=== PATIENT | female | born 1950 | race Caucasian/White ===

== ENCOUNTER 2023-05-05 20:21 | Emergency (ER) | payer MEDICARE, OTHER, SELFPAY ==
[2023-05-05 20:59] VITALS: BP 104/63; PULSE 114; RESP 16; TEMP 36.1; O2SAT 96
[2023-05-05 22:45] VITALS: BP 125/87; PULSE 110; RESP 14; TEMP 36.4; O2SAT 98
--- NOTE | 2023-05-05 23:18 | ED.WOUNDLAC ---
HPI - Wound/Laceration General Chief Complaint: Wound/Laceration <Nimo Jama PA-C - Last Filed: 05/06/23 02:44> Stated Complaint: gashed leg open, takes 1 daily aspirin <Nimo Jama PA-C - Last Filed: 05/06/23 02:44> Time Seen by Provider: 05/05/23 22:26 <Nimo Jama PA-C - Last Filed: 05/06/23 02:44> History of Present Illness HPI narrative: 73-year-old female reports for evaluation for a laceration to the left lower leg prior to arrival. Patient states she excellently cut her leg on the bottle of her purse. Bleeding is controlled. Her tetanus vaccine is up-to-date per patient. She does have a history of CHF and is currently taking Lasix with significant lower extremity edema which she states is unchanged from her baseline. She denies fever. <RIGOBERTO Scott Last Filed: 05/06/23 02:44> Related Data Allergies/Adverse Reactions: Allergies Allergy/AdvReac Type Severity Reaction Status Date / Time No Known Allergies Allergy Verified 05/05/23 20:57 <RIGOBERTO Scott Last Filed: 05/06/23 02:44> Review of Systems Review of Systems: CONSTITUTIONAL: Denies fever, chills EYES: Denies visual changes, redness, or discharge. ENT: Denies rhinorrhea, congestion, sore throat, or otalgia. CARDIOVASCULAR: Denies chest pain, palpitations, or edema. RESPIRATORY: Denies cough or dyspnea. GASTROINTESTINAL: Denies abdominal pain, nausea, vomiting, or diarrhea. GENITOURINARY: Denies dysuria or hematuria. SKIN: See HPI MUSCULOSKELETAL: Denies back pain, joint pain, or myalgia. NEUROLOGIC: Denies headache, numbness, dizziness, or weakness. PSYCHIATRIC: Denies anxiety or depression. <Nimo Jama PA-C - Last Filed: 05/06/23 02:44> Exam Narrative: GENERAL: Well-appearing, in no acute distress. HEAD: Normocephalic NECK: Supple. CHEST: No respiratory distress. Clear to auscultation, no adventitious breath sounds. HEART: Regular rate and rhythm. No murmur heard. Normal peripheral pulses. EXTREMITIES: Normal range of motion. No edema. SKIN: 6 cm superficial laceration to the anterior tib-fib, no deep structures or foreign bodies visualized. Bleeding controlled. NEURO: No focal deficits. Alert and oriented x3. PSYCH: Normal mood and affect. <Nimo Jama PA-C - Last Filed: 05/06/23 02:44> Course PRACTICE PROFESSIONAL/PA Physician Supervision I agree with midlevel documentation; I performed the medical decision making component of this evaluation. <Michela Srivastava MD - Last Filed: 05/06/23 22:42> Vital Signs Vital signs: Vital Signs Temperature 96.9 F L 05/05/23 20:59 Pulse Rate 114 H 05/05/23 20:59 Respiratory Rate 16 05/05/23 20:59 Blood Pressure 104/63 05/05/23 20:59 Pulse Oximetry 96 05/05/23 20:59 Oxygen Delivery Room Air 05/05/23 20:59 Temperature 97.6 F 05/05/23 22:45 Pulse Rate 100 05/06/23 00:56 Respiratory Rate 14 05/06/23 00:56 Blood Pressure 112/76 05/06/23 00:56 Pulse Oximetry 100 05/06/23 00:56 Oxygen Delivery Room Air 05/05/23 22:45 <Nimo Jama PA-C - Last Filed: 05/06/23 02:44> Vital Signs Temperature 96.9 F L 05/05/23 20:59 Pulse Rate 114 H 05/05/23 20:59 Respiratory Rate 16 05/05/23 20:59 Blood Pressure 104/63 05/05/23 20:59 Pulse Oximetry 96 05/05/23 20:59 Oxygen Delivery Room Air 05/05/23 20:59 Temperature 97.6 F 05/05/23 22:45 Pulse Rate 100 05/06/23 00:56 Respiratory Rate 14 05/06/23 00:56 Blood Pressure 112/76 05/06/23 00:56 Pulse Oximetry 100 05/06/23 00:56 Oxygen Delivery Room Air 05/05/23 22:45 <Michela Srivastava MD - Last Filed: 05/06/23 22:42> Procedures Laceration Laceration 1: Site: lower extremity <RIGOBERTO Scott Filed: 05/06/23 02:44> Side (If applicable): left <RIGOBERTO Scott Filed: 05/06/23 02:44> Description: linear <RIGOBERTO Scott L
[2023-05-06 00:29] VITALS: BP 98/80; PULSE 108; RESP 13; O2SAT 98
--- NOTE | 2023-05-06 00:29 | ECG_ITS ---
Measurements Intervals [place] Rate: 110 P: 266 WI: 142 QRS: -23 QRSD: 124 T: 171 QT: 348 QTc: 472 Interpretive Statements PROBABLE SINUS TACHYCARDIA LEFT VENTRICULAR HYPERTROPHY AND ST-T CHANGE SECONDARY TO HYPERTROPHY VERSUS ISCHEMIA POSSIBLE SEPTAL MYOCARDIAL INFARCTION , PROBABLY OLD [30 ms Q WAVE IN V1/V2] ABNORMAL ECG NO PREVIOUS ECG AVAILABLE FOR COMPARISON Electronically Signed On 05-06-2023 9:25:22 CDT by Abebe Giron M.D.
[2023-05-06 00:56] VITALS: BP 112/76; PULSE 100; RESP 14; O2SAT 100
== END 2023-05-06 01:02 | disposition home or self-care (01) ==
PROVIDERS: Emergency Provider Physician Assistant; PCP Internal Medicine
DX: S81.812A Laceration without foreign body, left lower leg, initial encounter (principal); I50.9 Heart failure, unspecified; R00.0 Tachycardia, unspecified; W25.XXXA Contact with sharp glass, initial encounter
CPT/HCPCS: 12001; 93005; 99283